=== PATIENT | male | born 1995 | race Caucasian/White ===

== ENCOUNTER 2021-03-14 11:18 | Emergency (ER) | payer OTHER ==
[2021-03-14 12:34] VITALS: BP 124/86; PULSE 74; RESP 18; TEMP 98.6
--- NOTE | 2021-03-14 13:18 | ED ---
General Adult HPI - General Chief complaint: Abdominal Pain Stated complaint: abd pressure Time Seen by Provider: 03/14/21 12:44 Source: patient Mode of arrival: ambulatory Limitations: no limitations - History of Present Illness Initial comments: Dictation was produced using [employer] dictation software. please excuse any grammatical, word or spelling errors. Chief Complaint: 26-year-old male presents with left lower quadrant abdominal pain History of Present Illness: Patient is a 26-year-old male who states that over the last couple days he's been having intermittent episodes of left lower quadrant abdominal pain. Patient has a fever constitutional symptoms. No diarrhea. Patient states that he's never been diagnosed with diverticulitis. Patient states that the pain is worse with palpation to that area. States that it's constant however he does get some relief intermittently and unexpectedly for some hours. Patient also has intermittent episodes of epigastric pain. Like to be evaluated for possible hepatitis, peptic ulcer disease and gastritis. Patient reports that he does have some epigastric symptoms. He states his epigastric symptoms have been fairly managed by outpatient physicians. Patient is allegedly on antacids however has been having trouble with his insurance to get his prescription filled. He is also been diagnosed with anxiety recently. The ROS documented in this emergency department record has been reviewed and confirmed by me. Those systems with pertinent positive or negative responses have been documented in the HPI. All other systems are other negative and/or noncontributory. PHYSICAL EXAM: General Impression: Alert and oriented x3, not in acute distress HEENT: Normocephalic atraumatic, extra-ocular movements intact, pupils equal and reactive to light bilaterally, mucous membranes moist. Cardiovascular: Heart regular rate and rhythm Chest: Able to complete full sentences, no retractions, no tachypnea Abdomen: abdomen soft, mild tenderness to the left lower quadrant, non- distended, no organomegaly Musculoskeletal: Pulses present and equal in all extremities, no peripheral edema Motor: no focal deficits noted Neurological: CN II-XII grossly intact, no focal motor or sensory deficits noted Skin: Intact with no visualized rashes Psych: Normal affect and mood ED course: 26-year-old male with chief complaint of left lower quadrant abdominal pain. Vital signs upon arrival are within acceptable limits. Laboratory evaluation obtained. CBC unremarkable. Metabolic panel abdominal labs are negative. EKG interpretation: Ventricular rate into, normal sinus rhythm,. Interval 166, QRS 106, QTC 411. No MO prolongation, no QTC prolongation, no ST or T-wave changes noted. Overall, this EKG is unremarkable Computed tomography scan of the abdomen and pelvis shows no acute processes. There is however evidence of mild colitis. Patient was discharged with referral to GI doctor. - Related Data Home Medications Medication Instructions Recorded Confirmed L.acidoph,Paracasei, B.lactis 1 cap PO DAILY 03/14/21 03/14/21 [Probiotic] Propranolol [Inderal] 10 mg PO BID 03/14/21 03/14/21 Allergies Allergy/AdvReac Type Severity Reaction Status Date / Time amoxicillin AdvReac Rash/Hives Verified 03/14/21 13:51 Penicillins AdvReac Rash/Hives Verified 03/14/21 13:51 Review of Systems ROS Statement: Those systems with pertinent positive or pertinent negative responses have been documented in the HPI. ROS Other: All systems not noted in ROS Statement are negative. Past Medical History Past Medical History: Asthma History of Any Multi-Drug Resistant Organisms: None Reported Past Surgical History: No Surgical Hx Reported Past Psychological History: Anxiety, Depression Smoking Status: Current every day smoker Past Alcohol Use History: Occasional Past Drug Use History: Marijuana General Exam Limitations: no limitations Course Vital Signs 03/14/21 12:28 Temperature 98.6 F Pulse Rate 74 Respiratory 18 Rate Blood Pressure 124/86 O2 Sat by Pulse 97 Oximetry Medical Decision Making - Lab Data Result diagrams: 03/14/21 13:27 03/14/21 13:27 Lab Results 03/14/21 03/14/21 Range/Units 13:27 13:27 WBC 10.8 H (3.8-10.6) k/uL RBC 5.54 (4.30-5.90) m/uL Hgb 16.6 (13.0-17.5) gm/dL Hct 47.2 (39.0-53.0) % MCV 85.1 (80.0-100.0) fL MCH 29.9 (25.0-35.0) pg MCHC 35.1 (31.0-37.0) g/dL RDW 11.8 (11.5-15.5) % Plt Count 234 (150-450) k/uL MPV 7.1 Neutrophils % 82 % Lymphocytes % 12 % Monocytes % 3 % Eosinophils % 1 % Basophils % 0 % Neutrophils # 8.8 H (1.3-7.7) k/uL Lymphocytes # 1.3 (1.0-4.8) k/uL Monocytes # 0.4 (0-1.0) k/uL Eosinophils # 0.1 (0-0.7) k/uL Basophils # 0.0 (0-0.2) k/uL Sodium 133 L (137-145) mmol/L Potassium 4.4 (3.5-5.1) mmol/L Chloride 104 (98-107) mmol/L Carbon Dioxide 26 (22-30) mmol/L Anion Gap 3 mmol/L BUN 14 (9-20) mg/dL Creatinine 0.85 (0.66-1.25) mg/dL Est GFR (CKD-EPI)AfAm >90 (>60 ml/min/1.73 sqM) Est GFR (CKD-EPI)NonAf >90 (>60 ml/min/1.73 sqM) Glucose 110 H (74-99) mg/dL Calcium 9.9 (8.4-10.2) mg/dL Total Bilirubin 2.3 H (0.2-1.3) mg/dL AST 35 (17-59) U/L ALT 62 H (4-49) U/L Alkaline Phosphatase 75 (38-126) U/L Total Protein 6.9 (6.3-8.2) g/dL Albumin 4.3 (3.5-5.0) g/dL Lipase 51 (23-300) U/L Disposition Clinical Impression: Abdominal pain Disposition: HOME SELF-CARE Condition: Good Instructions (If sedation given, give patient instructions): Abdominal Pain (ED) Is patient prescribed a controlled substance at d/c from ED?: No Referrals: Vanessa Concepcion MD [STAFF PHYSICIAN] - 1-2 days
[2021-03-14 13:50] LABS: Basophils % (A) 0 %; Eosinophils # (A) 0.1 k/uL (0-0.7); Eosinophils % (A) 1 %; HCT 47.2 % (39.0-53.0); HGB 16.6 gm/dL (13.0-17.5); Lymphocytes # (A) 1.3 k/uL (1.0-4.8); Lymphocytes % (A) 12 %; MCH 29.9 pg (25.0-35.0); MCHC 35.1 g/dL (31.0-37.0); MCV 85.1 fL (80.0-100.0); Mean Platelet Volume 7.1; Monocytes # (A) 0.4 k/uL (0-1.0); Monocytes % (A) 3 %; Neutrophils # (A) 8.8 k/uL (1.3-7.7); Neutrophils % (A) 82 %; Platelet Count 234 k/uL (150-450); RBC 5.54 m/uL (4.30-5.90); RDW 11.8 % (11.5-15.5); WBC 10.8 k/uL (3.8-10.6)
[2021-03-14 14:01] LABS: ALT 62 U/L (4-49); AST 35 U/L (17-59); African American GFR (CKD) >90 (>60 ml/min/1.73 sqM); Albumin 4.3 g/dL (3.5-5.0); Alkaline Phosphatase 75 U/L (38-126); Anion Gap 3 mmol/L; Blood Urea Nitrogen 14 mg/dL (9-20); Calcium 9.9 mg/dL (8.4-10.2); Carbon Dioxide 26 mmol/L (22-30); Chloride 104 mmol/L (98-107); Glucose 110 mg/dL (74-99); Lipase 51 U/L (23-300); Non-African American GFR(CKD) >90 (>60 ml/min/1.73 sqM); Potassium 4.4 mmol/L (3.5-5.1); Sodium 133 mmol/L (137-145); Total Bilirubin 2.3 mg/dL (0.2-1.3); Total Protein 6.9 g/dL (6.3-8.2)
[2021-03-14] MEDS ORDERED: MAG HYDROX/AL HYDROX/SIMETH 30 ML, HYOSCYAMINE ELIXIR 10 ML, LIDOCAINE VISCOUS 2% 10 ML PO STA ×3 (14:23)
--- NOTE | 2021-03-14 14:53 | CT ---
EXAMINATION TYPE: CT abdomen pelvis w con DATE OF EXAM: 03/14/2021 COMPARISON: None HISTORY: generalized abdominal pain, suspect diverticulitis. CT DLP: 998 mGycm, Automated Exposure Control for Dose Reduction was Utilized. CONTRAST: CT scan of the abdomen and pelvis is performed without oral and with IV Contrast, patient injected wi th 100 mL of Isovue 300. FINDINGS: LUNG BASES: No significant abnormality is appreciated. LIVER/GB: No significant abnormality is appreciated. PANCREAS: No significant abnormality is seen. SPLEEN: No significant abnormality is seen. ADRENALS: No significant abnormality is seen. KIDNEYS: Symmetric corticomedullary uptake and excretion without hydronephrosis seen bilaterally. BOWEL: Suboptimal evaluation of bowel without enteric contrast. Stomach poorly distended and thus sub optimally evaluated. Normal-appearing appendix from base of cecum in the right lower quadrant. No serenity picious small or large bowel dilatation. No significant diverticulosis or CT evidence for acute diver ticulitis. There are areas of mild wall thickening throughout the colon favor product of poor distent ion as there is no surrounding fat stranding, mild uncomplicated acute colitis is not entirely exclud ed. PROSTATE/SEMINAL VESICLES: Normal-sized prostate. A few left-sided pelvic phleboliths. LYMPH NODES: No greater than 1cm abdominal or pelvic lymph nodes are appreciated. OSSEOUS STRUCTURES: No significant abnormality is seen. OTHER: No significant additional abnormality is seen. IMPRESSION: No significant diverticulosis or CT evidence for acute diverticulitis. Areas of mild wal l thickening without fat stranding throughout the colon favor product of poor distention, a mild unco mplicated acute colitis cannot be excluded. Correlate clinically.
== END 2021-03-14 16:08 | disposition home or self-care (01) ==
LOC: EC 11:18
DX: R10.32 Left lower quadrant pain (principal); J45.909 Unspecified asthma, uncomplicated; F17.200 Nicotine dependence, unspecified, uncomplicated; F41.9 Anxiety disorder, unspecified; F32.9 Major depressive disorder, single episode, unspecified; F12.90 Cannabis use, unspecified, uncomplicated; Z72.89 Other problems related to lifestyle
CPT/HCPCS: 36415; 80053; 83690; 85025; 74177; 99284; Q9967